=== PATIENT | male | born 1970 | race Caucasian/White ===

== ENCOUNTER 2018-12-17 22:03 | Emergency (ER) | payer SELFPAY ==
[~2018-12-17] VITALS: Ht 172.7 cm; Wt 75.0 kg
[2018-12-17] MEDS ORDERED: TETANUS, DIPHTHERIA, PERTUSSIS VAC/PF 0.5ML (>7YR OLD) IM ONE (22:30)
[2018-12-17] MEDS ORDERED: LIDOCAINE HCL/PF 1% 10 MG/ML 5ML VIAL IJ ONE (22:30)
[2018-12-17] MEDS ORDERED: BACITRACIN ZINC OINT UDPKT TOP ONE (22:30)
[2018-12-17] MEDS ORDERED: HYDROCODONE/ACETAMINOPHEN 5/325MG TABLET PO ONE (22:30)
[2018-12-17 22:56] VITALS: BP 156/94
== END 2018-12-18 05:01 | disposition home or self-care (01) ==
LOC: ER 22:03
DX: S02.2XXB Fracture of nasal bones, initial encounter for open fracture (principal); S06.2X9A Diffuse traumatic brain injury with loss of consciousness of unspecified duration, initial encounter; E78.00 Pure hypercholesterolemia, unspecified; W39.XXXA Discharge of firework, initial encounter; Y93.89 Activity, other specified; Y92.89 Other specified places as the place of occurrence of the external cause; Y99.8 Other external cause status
CPT/HCPCS: 12013; 70486; 90471; 90715; 99284; A4217; J3490; Z7610